=== PATIENT | male | born 1970 | race Two or more races ===

== ENCOUNTER 2021-06-27 10:25 | Outpatient (REF) | payer OTHER, SELFPAY ==
[2021-06-27 10:52] LABS: MANUAL DIFF FLAG NO
[2021-06-27 10:57] LABS: Basophils Percent Auto 0.9 % (0-2); Eosinophils Absolute Auto 0.1 X10*3/uL (0.0-0.4); Eosinophils Percent Auto 1.6 % (0-4); Hematocrit 47.4 % (42-52); Hemoglobin 15.8 g/dl (14.0-18.0); Imm Gran Abs Auto 0.01 X10*3/uL (0.00-0.03); Imm Gran Pct Auto 0.2 % (0.0-0.4); Lymphocytes Percent Auto 45.3 % (20-40); Mean Corpuscular HGB Conc 33.3 g/dl (31.0-36.0); Mean Corpuscular Hemoglobin 28.8 pg (27.0-33.0); Mean Corpuscular Volume 86.5 fL (80-98); Mean Platelet Volume 10.6 fL (9.4-12.4); Monocytes Absolute Auto 0.4 X10*3/uL (0.1-1.2); Monocytes Percent Auto 7.8 % (2-11); Neutrophils Percent Auto 44.2 % (45-73); Platelet Count 236 X10*3/uL (160-400); Red Blood Count 5.48 X10*6/uL (4.60-5.80); Red Cell Distribution Width 12.9 % (11.0-16.0); White Blood Count 4.5 X10*3/uL (4.8-10.8)
[2021-06-27 11:21] LABS: Alanine Aminotransferase 32 U/L (0-40); Albumin Level 4.8 g/dL (3.5-5.0); Alkaline Phosphatase 51 U/L (39-117); Anion Gap 12 (12-20); Aspartate Amino Transferase 25 U/L (5-37); Blood Urea Nitrogen 12 mg/dL (9-16); Carbon Dioxide 27 mmol/L (22-29); Chloride 103 mmol/L (96-108); Cholesterol 256 mg/dL; Estimated Glomerular Filt Rate > 60; Glucose Fasting 110 mg/dL (60-99); HDL Cholesterol 43 mg/dL; LDL Cholesterol Calculated 171 mg/dl; Potassium 4.4 mmol/L (3.3-5.1); Rheumatoid Factor < 15.0 IU/mL (<15.0); Sodium 138 mmol/L (135-145); Total Protein 7.6 g/dL (6.5-8.0); Triglycerides 214 mg/dL
[2021-06-27 11:42] LABS: Thyroid Stimulating Hormone 0.79 uIU/mL (0.32-4.0)
[2021-06-27 11:46] LABS: PSA,Total (Free>4and<10) 0.41 ng/mL (0.00-4.00)
[2021-06-28 14:07] LABS: Anti Nuclear Antibody Screen NEGATIVE (NEGATIVE)
[2021-06-28 19:22] LABS: Cyclic Citrullinated Peptide <16 UNITS
== END 2021-06-27 10:26 | disposition home or self-care (01) ==
LOC: HO.LAB 10:25
PROVIDERS: PCP Internal Medicine; Visit Provider Internal Medicine
DX: Z12.5 Encounter for screening for malignant neoplasm of prostate (principal); M25.50 Pain in unspecified joint; E78.5 Hyperlipidemia, unspecified; I10 Essential (primary) hypertension; D64.9 Anemia, unspecified; E66.9 Obesity, unspecified
CPT/HCPCS: 36415; 80053; 80061; 84153; 84443; 85025; 86038; 86039; 86200; 86431

== ENCOUNTER → 2021-08-14 15:37 | Outpatient (BNVA) | payer OTHER, SELFPAY | PROVIDERS: PCP Internal Medicine; Referring Provider Internal Medicine; Visit Provider Nurse Practitioner Family ==

== ENCOUNTER → 2021-10-31 10:34 | Outpatient (BNVA) | payer OTHER, SELFPAY | PROVIDERS: PCP Internal Medicine; Visit Provider Urology ==

== ENCOUNTER 2021-11-18 08:01 | Day surgery (SDC) | payer OTHER, SELFPAY ==
[2021-11-13 10:41] VITALS: BMI 32.5
--- NOTE | 2021-11-15 10:27 | HO.ANESPROP2 ---
Documented by User: Isi Duran NP 11/15/21 10:28 HPI - Anesthesia Eval Consult details Narrative: 51yo M for Colonoscopy PMFSH Active Problems Active Problems: All Active Problems (Updated 11/13/21 @ 10:44 by Gila Coronel RN) Elevated blood pressure reading (Acute) Low libido (Acute) Polyuria (Acute) Polyarthralgia (Acute) Obesity (BMI 30.0-34.9) (Acute) Essential hypertension (Acute) Past Medical History Medical History COVID-19 vaccine series completed Essential hypertension History of COVID-19 Obesity (BMI 30.0-34.9) Polyarthralgia Polyuria Snoring Family History Family History Mother No problems noted. Father Parkinson disease Alzheimer disease Diabetes Surgical History Surgical History No pertinent past surgical history Social History Social History Housing: House Alcohol intake: current Alcohol intake frequency: a few times a month Alcohol type: beer and hard liquor Patient Tobacco Use Status: Never used Tobacco e-Cigarette/Vaping Use: Never Used Second Hand Smoke Exposure: No Use of substances other than those prescribed or required for medical reasons: No Have you been hit, kicked, punched, or otherwise hurt by someone within the past year? If so, by whom?: No Are you DNR?: No Advance Directives: No Advance Directives Information Provided: Yes (brochure mailed) Advance Directives on File: No Recently lost weight without trying: No Eating poorly because of decreased appetite: No Nutrition Risks: No Nutritional Risk Poor oral hygiene: No (has some broken teeth, nothing loose) service: No Current occupational status: employed Current occupational exposures/hazards: No Cognitive needs: No Hearing needs: No Vision needs: No Meds Allergies Allergy/AdvReac Type Severity Reaction Status Date / Time Penicillins Allergy Intermediate Hives Verified 11/13/21 09:43 Home Medications Medication Instructions Recorded Confirmed Last Taken Type aspirin 81 mg tablet,delayed 81 mg PO Q2D 08/14/21 11/13/21 Unknown History release Exam Exam Date and Time: November 15, 2021 1027 Height,Weight and Vital Signs: Height 5 ft 9 in Weight 99.79 kg Pertinent Lab Results Pertinent Lab Results: Laboratory Tests 06/27/21 06/27/21 10:40 10:40 WBC 4.5 L Hgb 15.8 Hct 47.4 Plt Count 236 Sodium 138 Potassium 4.4 Chloride 103 Carbon Dioxide 27 BUN 12 Creatinine 1.04 Assessment and Plan Assessment Anesthesia Assessment: Chart Reviewed Documented by User: Chanda Ortiz MD 11/18/21 09:25 [facility] Past Medical History Medical History COVID-19 vaccine series completed Essential hypertension History of COVID-19 Obesity (BMI 30.0-34.9) Polyarthralgia Polyuria Snoring Family History Family History Mother No problems noted. Father Parkinson disease Alzheimer disease Diabetes Family history of problems with anesthesia: No Surgical History Surgical History No pertinent past surgical history History of Problems with Anesthesia: No Social History Social History Housing: House Alcohol intake: current Alcohol intake frequency: a few times a month Alcohol type: beer and hard liquor Patient Tobacco Use Status: Never used Tobacco e-Cigarette/Vaping Use: Never Used Second Hand Smoke Exposure: No Use of substances other than those prescribed or required for medical reasons: No Have you been hit, kicked, punched, or otherwise hurt by someone within the past year? If so, by whom?: No Are you DNR?: No Advance Directives: No Advance Directives Information Provided: Yes (brochure mailed) Advance Directives on File: No Recently lost weight without trying: No Eating poorly because of decreased appetite: No Nutrition Risks: No Nutritional Risk Poor oral hygiene: No (has some broken teeth, nothing loose) service: No Current occupational status: employed Current occupational exposures/hazards: No Cognitive needs: No Hearing needs: No Vision needs: No Meds Allergies Allergy/AdvReac Type Severity Reaction Status Date / Time Penicillins Allergy Intermediate Hives Verified 11/13/21 09:43 Home Medications Medication Instructions Recorded Confirmed Last Taken Type aspirin 81 mg tablet,delayed 81 mg PO Q2D 08/14/21 11/13/21 Unknown History release Exam Height,Weight and Vital Signs: Height 5 ft 9 in Weight 99.79 kg Vital Signs Temp Pulse Resp BP Pulse Ox 11/18/21 08:43 97.0 F 82 16 162/105 H 98 Airway Mallampati Class: II TM Dist: >3cm Neck ROM: Full Loose/Missing/Broken Teeth: Yes (Missing molar, broken bottom left back ) Heart: RRR Lungs: CTAB Assessment and Plan Assessment Anesthesia Assessment: Anesthesia Plan Discussed Final Anesthetic Review Family History of Problems with Anesthesia: No History of Problems with Anesthesia: No NPO: Yes ASA Class: III Final Preanesthetic Review: No Changes in Pt Med Stat, Meds/Allgs Chart Reviewed, Consent Obtained/Reviewed and Anes Risks/Benef Reviewed Patient Risk: Intermediate Procedure Risk: Low Assessment/Block/Sedation in SS: Assess/Block/Sedation- Anesthetic Plan Anesthetic Plan: MAC: Disposition: Standard PACU
[2021-11-18 08:43] VITALS: BP 162/105; PULSE 82; RESP 16; TEMP 36.1; O2SAT 98
--- NOTE | 2021-11-18 08:47 | MHC.SHP ---
Pre-Procedural Eval Section A Date of Service: 11/18/21 Section B Chief Complaint: screening Relevant Family History (Specify if Yes): No Relevant Social History: None Present Medications: see Short Stay Collaborative assessment Medical History: Significant History (COVID-19 vaccine series completed Essential hypertension History of COVID-19 Obesity (BMI 30.0-34.9) Polyarthralgia Polyuria Snoring) History of Previous Operations: No relevant previous surgery Allergies: Allergies Allergy/AdvReac Type Severity Reaction Status Date / Time Penicillins Allergy Intermediate Hives Verified 11/13/21 09:43 Review of Systems Sugical H&P ROS: Negative: Constitution, Cardiovascular, Respiratory, Neurological, Psychiatric, Hem-Onc, Allergic/Immunologic, Gastrointestinal, Genitourinary, Musculoskeletal, Integumentary, Endocrine and Eyes/Ears/Nose/Throat Exam Surgical H&P Exam: Normal: HEENT, Normal: Heart, Normal: Lungs, Normal: Extremities, Normal: Abdomen, Normal: Skin and Normal: Neurological Plan Diagnosis/Plan: Unchanged I have reviewed the history and physical and performed a pertinent physical examination on my patient. No changes have occurred unless specified.
--- NOTE | 2021-11-18 09:44 | P.BOP_ITS ---
Brief Operative Note Date of Service: 11/18/21 Pre-op diagnosis: colon screening Post-op diagnosis: same Procedure: see op note Surgeon: Hilario Munson MD Anesthesia: MAC Was an Keg Varnisher used for this Procedure?: No Estimated blood loss (mL): 0 Condition: stable Disposition: PACU
--- NOTE | 2021-11-18 09:44 | W.PM.OPN ---
Operative Note Operative Note Date of Service: 11/18/21 Narrative: Operative Information Procedure Description: Colonoscopy COLONOSCOPY Instrument: Olympus variable stiffness pediatric scope 190L Colonoscopy Monitoring: Vital signs and clinical assessment, continuous EKG monitoring, Pulse oximetry, Carbon Dioxide monitoring and blood pressure monitoring were done throughout the procedure. Colon withdrawal time was 18 minutes. Procedure: The patient was placed in the left lateral decubitis position and pre-procedure medications were administered. After a digital rectal examination of the ano-rectum, the video colonoscope was inserted into the rectum and advanced through the colon to the cecum/TI. The colonoscope was slowly withdrawn in a retrograde panoramic fashion and the colon mucosa was carefully examined including a retroflexed view of the rectum. Findings and interventions are described below. Procedure Difficulty: moderate, pressure applied to reach cecum Findings: Terminal Ileum-not intubated Cecum:normal Ascending Colon: 8-9 mm sessile polyp removed with cold snare Transverse Colon -normal Descending Colon:normal Sigmoid Colon: 10-12 mm sessile polyp removed with cold snare Rectum: Retroflexion with moderate sized internal hemorrhoids, grade II Anorectum - normal Colon preparation: [place] Bowel Preparation Scale Right colon; 2 Transverse colon: 2 Left colon; 2 (0 = Unprepared colon segment with mucosa not seen due to solid stool that cannot be cleared. 1 = Portion of mucosa of the colon segment seen, but other areas of the colon segment not well seen due to staining, residual stool and/or opaque liquid. 2 = Minor amount of residual staining, small fragments of stool and/or opaque liquid, but mucosa of colon segment seen well. 3 = Entire mucosa of colon segment seen well with no residual staining, small fragments of stool or opaque liquid) Impression and Post Procedure Diagnosis: polyps (both were Kudo type IV suggestive of adenomas) internal hemorrhoids Plan: High fiber diet leaflet Avoid straining at stool, epsom salts and sitz bath, anusol supps or cream Repeat Colonoscopy in 5 years due to polyps or earlier if clinically indicated Above findings were reviewed with the patient and relevant handouts were provided if indicated.
[2021-11-18 09:49] VITALS: BP 108/67; PULSE 83; RESP 18; TEMP 36.1; O2SAT 99
[2021-11-18 10:04] VITALS: BP 147/73; PULSE 87; RESP 18; TEMP 36.1; O2SAT 98
== END 2021-11-18 10:40 ==
LOC: HO.SSS 08:01
PROVIDERS: PCP Internal Medicine; Visit Provider Internal Medicine Gastroenterology
PROC: 0DJD8ZZ Inspection of Lower Intestinal Tract, Via Natural or Artificial Opening Endoscopic (ICD-10-PCS; CPT 45378; principal; 2021-11-18 09:10)
DX: Z12.11 Encounter for screening for malignant neoplasm of colon (principal); D12.2 Benign neoplasm of ascending colon; D12.5 Benign neoplasm of sigmoid colon; K64.1 Second degree hemorrhoids; I10 Essential (primary) hypertension; M25.50 Pain in unspecified joint; R35.89 Other polyuria; R06.83 Snoring; E66.9 Obesity, unspecified; Z68.32 Body mass index [BMI] 32.0-32.9, adult; Z86.16 Personal history of COVID-19; Z79.82 Long term (current) use of aspirin; Z88.0 Allergy status to penicillin
CPT/HCPCS: 45385; 88305

== ENCOUNTER → 2021-12-02 08:30 | Outpatient (BNVA) | payer OTHER, SELFPAY | PROVIDERS: PCP Internal Medicine; Referring Provider Internal Medicine; Visit Provider Nurse Practitioner Family ==

== ENCOUNTER 2023-07-22 13:43 | Outpatient (AMB) | payer OTHER, SELFPAY ==
[2023-07-22 13:46] VITALS: BP 150/92; BMI 34.1
--- NOTE | 2023-07-22 13:46 | A.OFFPC_ITS ---
Vital Signs 07/22/23 13:46 07/22/23 15:13 Height 5 ft 9 in Weight 231 lb BMI 34.1 BP 150/92 H 140/90 H Blood Pressure Location Lt brachial Lt brachial Position Sitting Sitting Intake Visit Reasons: annual exam Intake Note: Patient here for an annual physical exam Compliance Manager Required: No Accompanied by: Self / Same As Patient Allergies Penicillins Allergy (Intermediate, Verified 07/22/23 13:48) Hives Medication List - Last Reconciled 07/22/23 by Tegan Montes MD amlodipine 10 mg PO DAILY 90 days aspirin 81 mg PO Q2D chlorthalidone 25 mg PO DAILY 90 days valsartan 320 mg PO DAILY Tobacco use date assessed: 07/22/23 Dental Screening Dental Screen Date: 07/22/23 Did you have a dental visit in the last 12 months?: Yes Did you have a dental problem in the last 6 months where you did not have access to dental care?: No Was dental information given to patient?: Patient has dentist HPI HPI Comments History of Present Illness Details This is a 52-year-old male that comes for his physical exam. Last colonoscopy was a year ago and was normal. No chest pain or shortness of breath. Some loss of libido and would like to see Urology. [facility] Medical History Mixed hyperlipidemia Leucopenia Tubular adenoma COVID-19 vaccine series completed History of COVID-19 Snoring Polyuria Polyarthralgia Obesity (BMI 30.0-34.9) Essential hypertension Surgical History No pertinent past surgical history Family History (Updated 07/22/23 @ 14:04 by Tegan Montes MD) Mother No problems noted. Father Parkinson disease Alzheimer disease Diabetes Social History Housing: House Alcohol intake: current Alcohol intake frequency: a few times a month Alcohol type: beer and hard liquor Patient Tobacco Use Status: Former Tobacco user Tobacco use type: Cigarette e-Cigarette/Vaping Use: Never Used Second Hand Smoke Exposure: No service: No Current occupational status: employed Current occupational exposures/hazards: No Cognitive needs: No Hearing needs: No Vision needs: No Questionnaire PHQ-9 Over the last 2 weeks, how often have you been bothered by any of the following problems? 1. Little interest or pleasure in doing things: not at all 2. Feeling down, depressed, or hopeless: several days 3. Trouble falling or staying asleep, or sleeping too much: not at all 4. Feeling tired or having little energy: not at all 5. Poor appetite or overeating: not at all 6. Feeling bad about yourself - or that you are a failure or have let yourself or your family down: not at all 7. Trouble concentrating on things, such as reading the newspaper or watching television: not at all 8. Moving or speaking so slowly that other people could have noticed. Or the opposite - being so fidgety or restless that you have been moving around a lot more than usual: not at all 9. Thoughts that you would be better off or of hurting yourself in some way: not at all Total score: 1 Depression Screening Interpretation: Negative 55743 - PHQ-9 Billing: Yes Source: Developed by Drs. Fritz Lai, Nona Yang, Dick Wheatley and colleagues, with an educational rafael from [employer]. Thrive Questionnaire Date Thrive assessed: 07/22/23 I am a: Patient What is your living situation today?: I have a steady place to live Within the past 12 months, did the food you bought not last and you didn't have the money to get more?: Never true Within the past 12 months, did you worry whether your food would run out before you got money to buy more?: Never true Do you have trouble paying for medicines?: No Do you have trouble getting transportation to medical appointments?: No Do you have trouble paying your heating and electricity bill?: No Do you have trouble taking care of your child, family member or friend?: No Do you have trouble with day-to-day activities such as bathing, preparing meals, shopping, managing finances, etc.?: No Are you currently unemployed and looking for a job?: No Are you interested in more education?: No Please select the resources that you would like help with: None Currently or been in a relationship where the following occur: no concerns reported AUDIT C Alcohol Use Questionnaire (AUDIT-C) 1. How often do you have a drink containing alcohol?: 2-4 times a month 2. How many drinks containing alcohol do you have on a typical day when you are drinking?: 1 or 2 3. How often do you have six or more drinks on one occasion?: Never Total Score: 2 Score Reviewed/Action Taken: No MELBA-7 AMB Questionnaire MELBA-7 Date MELBA - 7 assessed: 07/22/23 Feeling nervous, anxious, or on edge: 0 = Not at all Not being able to stop or control worryin = Not at all Worrying too much about different things: 0 = Not at all Trouble relaxin = Not at all Being so restless that it is hard to sit still: 0 = Not at all Becoming easily annoyed or irritable: 0 = Not at all Feeling afraid as if something awful might happen: 0 = Not at all Total MELBA-7 score (0-4 normal; 5-9 mild; 10-14 moderate; 15-21 severe): 0 Source: Developed by Drs. Fritz Lai, Nona Yang, Dick Wheatley and colleagues, with an educational rafael from [employer]. MELBA-7 Assessment Billing MELBA-7 Assessment Tool: MELBA-7 Assessment 57398 Review of Systems Const All systems reviewed & are unremarkable except as noted in HPI and below Eyes Reports no additional complaints, Denies change in vision and Denies other visual disturbances Card Denies chest pain at rest, Denies chest pain with activity, Denies edema, Denies irregular heart rhythm, Denies claudication, Denies dyspnea, Denies dyspnea on exertion, Denies orthopnea, Denies paroxysmal nocturnal dyspnea and Denies slow heart rate Resp Denies cough, Denies dyspnea and Denies dyspnea on exertion GI Denies abdominal pain, Denies change in bowel habits, Denies excessive flatus, Denies nausea and Denies vomiting Denies urinary hesitancy, Denies urinary incontinence and Denies urinary urgency Musc Denies abnormal gait, Denies atrophy, Denies deformity and Denies limited range of motion Skin/Breast Denies bleeding lesions, Denies changing lesions and Denies rash Neuro Denies abnormal gait and Denies lack of coordination Physical exam (Primary Care) Vital Signs: Last Vital Signs BP 150/92 H 07/22/23 13:46 BMI result Body Mass Index 34.1 Tobacco/Smoking Status: Tobacco use Status Tobacco use date assessed 07/22/23 07/22/23 13:54 Patient Tobacco Use Status Former Tobacco user 07/22/23 13:54 Tobacco use type Cigarette 07/22/23 13:54 e-Cigarette/Vaping Use Never Used 07/22/23 13:54 PHQ-9: PHQ-9 Score PHQ-9: Total score 1 07/22/23 14:06 Depression Screening Interpretation: Negative Thrive Assessment: Date of Thrive Assessment Date Thrive assessed 07/22/23 07/22/23 13:54 Currently or been in a relationship where the following occur: no concerns reported Const Orientation/consciousness: patient oriented x3 HENMT Head: Yes normal to inspection, Yes normocephalic and Yes atraumatic Ears: external ears normal Eyes General: appearance normal, both eyes and all related structures Eyelids: Yes eyelids normal Conjunctivae: conjunctivae normal Neck Neck: Yes normal visual inspection and Yes supple Resp Effort & Inspection: normal respiratory effort Auscultation: clear to auscultation bilaterally Cardio Jugular venous distension: no JVD Rate: regular rate Rhythm: regular rhythm Heart sounds: S1 normal heart sound present and S2 normal heart sound present GI Inspection: Yes normal to inspection Palpation (GI): Soft to palpation and nontender Auscultation: normal bowel sounds Skin General skin exam: no rashes or lesions noted Neuro General: patient oriented x3 and no focal motor deficits Extrem General: Yes full ROM Psych Appearance: grossly normal Assessment and Plan Assessment & Plan (1) Physical exam: Code(s): Z00.00 - Encounter for general adult medical examination without abnormal findings Plan: Repeat in a year Orders: Orders Lipid Panel Today E78.5 - Hyperlipidemia, unspecified, Z00.00 - Encounter for general adult medical examination without abnormal findings PSA,Total (Free>4and<10) Today Z12.5 - Encounter for screening for malignant neoplasm of prostate Comprehensive [place]. Panel Fast Today Z00.00 - Encounter for general adult medical examination without abnormal findings Referrals Urology Referral R68.82 - Decreased libido Medications: New acetaminophen ER ([facility]ap Arthritis Pain) 650 mg PO Q12H 30 days PRN 60 tabs 0RF pain Coding Level of Care Code Est Pt Prev Care 40-64y(06688) Diagnoses Physical exam Z00.00 Additional Codes MELBA-7 Assessment Billing - MELBA-7 Assessment Tool: MELBA-7 Assessment 66643 ([id number]) Time Spent (min) 31
[2023-07-22 15:13] VITALS: BP 140/90
== END 2023-07-22 14:11 | disposition home or self-care (01) ==
PROVIDERS: PCP Internal Medicine; Visit Provider Internal Medicine
DX: Z00.00 Encounter for general adult medical examination without abnormal findings (principal)
CPT/HCPCS: 99396

== ENCOUNTER 2023-10-07 11:34 | Outpatient (AMB) | payer OTHER, SELFPAY ==
--- NOTE | 2023-10-07 11:33 | A.OFFVIS_ITS ---
Intake Intake Visit Reasons: Decreased libido Intake Note: New Patient presents for initial visit for decreased libido Urology Medications: none Blood Thinner: aspirin Senior Sales Director Required: No Accompanied by: Self / Same As Patient Allergies Penicillins Allergy (Intermediate, Verified 10/07/23 12:27) Hives Medication List - Last Reconciled 10/07/23 by SHERRI Fraire-AZUL acetaminophen ER (Mapap Arthritis Pain) 650 mg PO Q12H PRN 30 days amlodipine 10 mg PO DAILY 90 days aspirin 81 mg PO Q2D chlorthalidone 25 mg PO DAILY 90 days tadalafil (Cialis) 5 mg PO DAILY 90 days valsartan 320 mg PO DAILY HPI HPI Comments History of Present Illness Details Eber is a 52-year-old Thai-speaking male patient of Dr. Jarrett. He has a past medical history of hyperlipidemia, obesity, and hypertension. He presents to the office today as a new patient for low libido and erectile dysfunction. In discussion with the patient today he reports symptoms to have been present for months however feels they are worsening. He discusses feeling symptoms of low libido and erectile dysfunction are variable. He reports at times he is able to obtain and maintain erections. Discussed at length lifestyle modifications to assist with low libido and erectile dysfunction. He discusses at length his high level of stress with the recent loss of his father approximately 3 months ago and having 2 jobs. When asked he does report nocturia 2-4 times per night. He otherwise denies urinary urgency, urinary frequency, incontinence,hematuria, dysuria, foul smelling urine, changes to urinary stream, flank pain, fever, and or chills. Discussed obtaining labs as well as retroperitoneal ultrasound for further assessment evaluation. Discussed at length potential causes for lower urinary tract symptoms as well as low libido and erectile dysfunction. In office urinalysis results reviewed with the patient today. Discussed near future possible workup for sleep apnea. He also discusses undergoing infertility issues over 20 years ago. He otherwise offers no issues or concerns at this time. [facility] Medical History Mixed hyperlipidemia Leucopenia Tubular adenoma COVID-19 vaccine series completed History of COVID-19 Snoring Polyuria Polyarthralgia Obesity (BMI 30.0-34.9) Essential hypertension Surgical History No pertinent past surgical history Family History Mother No problems noted. Father Parkinson disease Alzheimer disease Diabetes Social History Housing: House Alcohol intake: current Alcohol intake frequency: a few times a month Alcohol type: beer and hard liquor Patient Tobacco Use Status: Former Tobacco user Tobacco use type: Cigarette e-Cigarette/Vaping Use: Never Used Second Hand Smoke Exposure: No service: No Current occupational status: employed Current occupational exposures/hazards: No Cognitive needs: No Hearing needs: No Vision needs: No Review of Systems Const All systems reviewed & are unremarkable except as noted in HPI and below Eyes Reports no additional complaints ENT Reports no additional complaints Card Reports as per HPI Resp Reports no additional complaints GI Reports no additional complaints Reports as per HPI Musc Reports no additional complaints Neuro Reports no additional complaints Psych Reports as per HPI Endo Reports no additional complaints Umesh/Lymph Reports no additional complaints Aller/Immun Reports no additional complaints Physical Exam Const General: cooperative, healthy appearing, comfortable, no acute distress, well developed, alert and awake Nutritional Appearance: overweight Orientation/consciousness: patient oriented x3 Limitations: no limitations HEENT Head: Yes normal to inspection, Yes normocephalic and Yes atraumatic Ears: hearing grossly normal bilaterally Eyes General: appearance normal, both eyes and all related structures Neck Neck: Yes normal visual inspection and Yes trachea midline Chest Chest palpation & inspection: normal inspection of the chest Resp Effort & Inspection: normal respiratory effort and able to speak in complete sentences Cardio Rate: regular rate GI Inspection: Yes normal to inspection General: Yes no CVA tenderness Back/Spine/Pelvis Back: no CVA tenderness Skin General skin exam: no rashes or lesions noted Neuro General: patient oriented x3 Extrem General: Yes normal to inspection Psych Appearance: grossly normal and well kempt Mental Status: mental status grossly normal Speech and movement: Normal speech and movement present and Clear speech present Affect: normal affect Attitude: cooperative Thought process: Normal thought process present Thought content: Normal thought content present Insight: Fair insight present (Psych) Judgement: Fair judgement present (Psych) Results AMB Urinalysis, Automated UA Leukoctes 0 Rc/uL Last Edit by Jam Taylor on 10/07/23 11:53 UA Nitrite Negative Last Edit by Jam Taylor on 10/07/23 11:53 UA Urobilinogen 0.2 mg/dL Last Edit by Jam Taylor on 10/07/23 11:53 UA Protein 15 mg/dL Last Edit by Jam Taylor on 10/07/23 11:53 UA pH 6.0 Last Edit by Jam Taylor on 10/07/23 11:53 UA Blood 0 Ronald/uL Last Edit by Jam Taylor on 10/07/23 11:53 UA Specific [place] 1.025 Last Edit by Jam Taylor on 10/07/23 11:53 UA Ketone Negative Last Edit by Jam Taylor on 10/07/23 11:53 UA Bilirubin 0 mg/dL Last Edit by Jam Taylor on 10/07/23 11:53 UA Glucose 0 mg/dL Last Edit by Jam Taylor on 10/07/23 11:53 Results Reviewed Results Reviewed: Laboratory Last Values Urine pH (Auto) 6.0 10/07/23 11:36 Specific [place] (Auto) 1.025 10/07/23 11:36 Urine Protein (Auto) 15 mg/dL 10/07/23 11:36 Glucose (UA)(Auto) 0 mg/dL 10/07/23 11:36 Urine Ketones (Auto) Negative 10/07/23 11:36 Urine Blood (Auto) 0 Ronald/uL 10/07/23 11:36 Urine Nitrite (Auto) Negative 10/07/23 11:36 Urine Bilirubin (Auto) 0 mg/dL 10/07/23 11:36 Urine Urobilinogen (Auto) 0.2 mg/dL 10/07/23 11:36 Leukocyte Esterase (Auto) 0 Rc/uL 10/07/23 11:36 Assessment & Plan Assessment & Plan (1) Low libido: Code(s): R68.82 - Decreased libido (2) Erectile dysfunction: Code(s): N52.9 - Male erectile dysfunction, unspecified (3) Nocturia: Code(s): R35.1 - Nocturia Plan In office urinalysis results reviewed with the patient today; as noted above. Discussed at length lifestyle modifications to assist with ED, low libido, and nocturia Will obtain testosterone free and total, PSA, FSH, estradiol, LH, and SHBG for further assessment evaluation. Will obtain retroperitoneal ultrasound for further assessment evaluation. Start 5 mg of Cialis daily as discussed and prescribed. Discussed possible near future sleep apnea testing for further assessment evaluation Discussed potential causes for ED, low libido, and nocturia patient is experiencing Follow-up in 1-2 months with labs and imaging to be completed prior; or sooner with any issues, concerns, and or questions. Orders: Orders Sex Hormone Binding Globulin Today N52.9 - Male erectile dysfunction, unspecified, R68.82 - Decreased libido US retroperitoneal comp Today R35.1 - Nocturia Lutenizing Hormone Today N52.9 - Male erectile dysfunction, unspecified Estradiol Ultra Sensitive Today N52.9 - Male erectile dysfunction, unspecified Follicle Stimulating Hormone Today N52.9 - Male erectile dysfunction, unspecified AMB Urinalysis Automated Today Z13.9 - Encounter for screening, unspecified Testosterone, Free/Total Today N52.9 - Male erectile dysfunction, unspecified, R 68.82 - Decreased libido Prostate Specific Antigen Today R35.1 - Nocturia Medications: New tadalafil (Cialis) [id number] [facility] [id number] Member [id number] 5 mg PO DAILY 90 days 90 tabs 0RF N52.9 - Male erectile dysfunction, unspecified Patient Instructions: The patient had an opportunity to ask questions regarding the treatment plan. All questions were answered. Physical exam, labs, and imaging were discussed and reviewed in detail. As well as risks, benefits, and discussion of treatment choices. No major barriers to understanding were identified. The patient expressed understanding and agreement with the above treatment plan. The patient was made aware they should contact our office by phone for worsening of their current condition, the appearance of new symptoms, or with any questions or concerns. Compliance is encouraged with any medications and follow up testing that is ordered. It is a privilege to be allowed the opportunity to participate in? your urological care.? Again, if you have any questions or concerns If you have any questions or concerns please do not hesitate to contact me. The office is [phone]. This note is constructed using voice recognition software. While every effort has been made to ensure accuracy stiff straw hat washer errors may have been included. Yours sincerely, LALO Fraire Coding Level of Care Code New Pt Level 4 (46143) Diagnoses Low libido R68.82 Erectile dysfunction N52.9 Nocturia R35.1
== END 2023-10-07 12:31 | disposition home or self-care (01) ==
PROVIDERS: PCP Internal Medicine; Visit Provider Nurse Practitioner Family
DX: R68.82 Decreased libido (principal); N52.9 Male erectile dysfunction, unspecified; R35.1 Nocturia; Z13.9 Encounter for screening, unspecified
CPT/HCPCS: 99204; 99214

== ENCOUNTER → 2023-10-07 11:34 | Outpatient (BNVA) | payer OTHER, SELFPAY | PROVIDERS: PCP Internal Medicine; Visit Provider Nurse Practitioner Family | DX: R68.82 Decreased libido (principal); N52.9 Male erectile dysfunction, unspecified; R35.1 Nocturia | CPT/HCPCS: 81003 ==

== ENCOUNTER 2023-11-04 12:31 | Outpatient (REF) | payer OTHER, SELFPAY ==
[2023-11-04 15:35] LABS: Prostate Specific Antigen 0.31 ng/mL (<0.05-4.0)
[2023-11-06 01:28] LABS: Sex Hormone Binding Globulin 22 nmol/L (10-50)
[2023-11-06 04:28] LABS: Follicle Stimulating Hormone 15.3 mIU/mL (1.4-12.8); Lutenizing Hormone 8.1 mIU/mL (1.5-9.3)
[2023-11-10 23:19] LABS: Estradiol Ultra Sensitive 37 pg/mL (< OR = 29)
[2023-11-11 14:24] LABS: Testosterone, Free 73.5 pg/mL (35.0-155.0); Testosterone, Total 393 ng/dL (250-1100)
== END 2023-11-04 12:32 | disposition home or self-care (01) ==
LOC: HO.LAB 12:31
PROVIDERS: Absent Provider Internal Medicine; PCP Internal Medicine; Visit Provider Nurse Practitioner Family
DX: Z12.5 Encounter for screening for malignant neoplasm of prostate (principal); N52.9 Male erectile dysfunction, unspecified; R35.1 Nocturia; R68.82 Decreased libido
CPT/HCPCS: 36415; 82670; 83001; 83002; 84153; 84270; 84402; 84403

== ENCOUNTER 2023-11-25 14:19 | Outpatient (REF) | payer OTHER, SELFPAY ==
--- NOTE | ~2023-11-25 | US_ITS ---
EXAMINATION: US RETROPERITONEAL COMPLETE (RENAL) CLINICAL INFORMATION: Nocturia. COMPARISON: None available. TECHNIQUE: Real-time imaging of the kidneys and bladder. FINDINGS: RIGHT KIDNEY: 11.2 x 7.3 x 6.2 cm (SAG x AP x TRV). The kidney is normal in size, contour, and echogenicity. Renal cortical thickness is normal. No renal calculi or focal parenchymal lesions. Mild right hydronephrosis. LEFT KIDNEY: 12.1 x 7.2 x 5.4 cm (SAG x AP x TRV). The kidney is normal in size, contour, and echogenicity. Renal cortical thickness is normal. No renal calculi or focal parenchymal lesions. Pelviectasis without missy hydronephrosis. BLADDER: Well distended and normal. Bilateral ureteral jets are demonstrated. Prevoid bladder volume is 135 mL. Postvoid bladder volume is 12.6 mL. ADDITIONAL FINDINGS: Prostate enlarged with a volume of 35 mL. US/US retroperitoneal comp IMPRESSION: 1. Mild right hydronephrosis. 2. Left renal pelviectasis without missy hydronephrosis. 3. Prostate is mildly enlarged with a volume of 35 mL.
== END 2023-11-25 14:20 | disposition home or self-care (01) ==
LOC: HO.US 14:19
PROVIDERS: PCP Internal Medicine; Visit Provider Nurse Practitioner Family
DX: R35.1 Nocturia (principal)
CPT/HCPCS: 76770

== ENCOUNTER 2023-12-01 08:48 | Outpatient (AMB) | payer OTHER, SELFPAY ==
--- NOTE | 2023-12-01 08:49 | A.OFFVIS_ITS ---
Intake Intake Visit Reasons: 1m/US/labs Intake Note: Patient presents for follow up Ultrasound and Labs Imagin11/25/23 PSA: 0.31 Total Testosterone: 393 Free Testosterone: 73.5 Urology Medications: Tadalafil Blood Thinner: aspirin Venue Coordinator Required: Yes Venue Coordinator Name: SANDRINE KIRKLAND Accompanied by: Self / Same As Patient Allergies Penicillins Allergy (Intermediate, Verified 12/01/23 09:09) Hives Medication List - Last Reconciled 12/01/23 by SHERRI Fraire-AZUL acetaminophen ER (Mapap Arthritis Pain) 650 mg PO Q12H PRN 30 days amlodipine 10 mg PO DAILY 90 days aspirin 81 mg PO Q2D chlorthalidone 25 mg PO DAILY 90 days tadalafil (Cialis) 5 mg PO DAILY 90 days valsartan 320 mg PO DAILY HPI HPI Comments History of Present Illness Details Eber is a 53-year-old Venezuelan-speaking male patient of Dr. Jarrett. He has a past medical history of hyperlipidemia, obesity, and hypertension. He presents to the office today for follow-up. Of note, patient was seen approximately 2 months ago as a new patient for low libido and erectile dysfunction at which time labs were ordered for further assessment evaluation and the patient was started on low-dose Cialis. These results were reviewed with the patient today. 11/18 Estradiol--37 FSH--15.3 LH--8.1 Total testosterone --393 Free testosterone-- 73.5 SHBG--22 PSA--0.3 Discussed obtaining prolactin as well as redraw of labs for further assessment evaluation. Discussed abnormality and estradiol as well as FSH. Patient reports previous workup for infertility in the past in [place]. In discussion with the patient today he reports noting improvement in erectile dysfunction with Cialis 5 mg daily. During last office visit patient was also reporting nocturia therefore a retroperitoneal ultrasound was ordered for further assessment evaluation. These results were reviewed with the patient today. Mild right hydronephrosis, left renal pelviectasis without missy hydronephrosis. Prostate is mildly enlarged at approximately 35 mL. Discussed further workup with CT urogram and or nuclear renal scan versus surveillance monitoring discussed risks and benefits of these interventions. Discussed at length potential causes for lower urinary tract symptoms as well as low libido and erectile dysfunction. He otherwise denies urinary urgency, urinary frequency, incontinence, hematuria, dysuria, foul smelling urine, changes to urinary stream, flank pain, fever, and or chills. He is happy with his current voiding parameters. In office urinalysis results reviewed with the patient today. He otherwise offers no issues or concerns at this time. [facility] Medical History Mixed hyperlipidemia Leucopenia Tubular adenoma COVID-19 vaccine series completed History of COVID-19 Snoring Polyuria Polyarthralgia Obesity (BMI 30.0-34.9) Essential hypertension Surgical History No pertinent past surgical history Family History Mother No problems noted. Father Parkinson disease Alzheimer disease Diabetes Social History Housing: House Alcohol intake: current Alcohol intake frequency: a few times a month Alcohol type: beer and hard liquor Patient Tobacco Use Status: Former Tobacco user Tobacco use type: Cigarette e-Cigarette/Vaping Use: Never Used Second Hand Smoke Exposure: No service: No Current occupational status: employed Current occupational exposures/hazards: No Cognitive needs: No Hearing needs: No Vision needs: No Review of Systems Const All systems reviewed & are unremarkable except as noted in HPI and below Eyes Reports no additional complaints ENT Reports no additional complaints Card Reports as per HPI Resp Reports no additional complaints GI Reports no additional complaints Reports as per HPI Musc Reports no additional complaints Neuro Reports no additional complaints Psych Reports as per HPI Endo Reports no additional complaints Umesh/Lymph Reports no additional complaints Aller/Immun Reports no additional complaints Physical Exam Const General: cooperative, healthy appearing, comfortable, no acute distress, well developed, alert and awake Nutritional Appearance: overweight Orientation/consciousness: patient oriented x3 Limitations: no limitations HEENT Head: Yes normal to inspection, Yes normocephalic and Yes atraumatic Ears: hearing grossly normal bilaterally Eyes General: appearance normal, both eyes and all related structures Neck Neck: Yes normal visual inspection and Yes trachea midline Chest Chest palpation & inspection: normal inspection of the chest Resp Effort & Inspection: normal respiratory effort and able to speak in complete sentences Cardio Rate: regular rate GI Inspection: Yes normal to inspection General: Yes no CVA tenderness Back/Spine/Pelvis Back: no CVA tenderness Skin General skin exam: no rashes or lesions noted Neuro General: patient oriented x3 Extrem General: Yes normal to inspection Psych Appearance: grossly normal and well kempt Mental Status: mental status grossly normal Speech and movement: Normal speech and movement present and Clear speech present Affect: normal affect Attitude: cooperative Thought process: Normal thought process present Thought content: Normal thought content present Insight: Fair insight present (Psych) Judgement: Fair judgement present (Psych) Results AMB Urinalysis, Automated UA Leukoctes 0 Rc/uL Last Edit by [employer] on 12/01/23 09:07 UA Nitrite Negative Last Edit by [employer] on 12/01/23 09:07 UA Urobilinogen 0.2 mg/dL Last Edit by [employer] on 12/01/23 09:07 UA Protein 0 mg/dL Last Edit by [employer] on 12/01/23 09:07 UA pH 6.0 Last Edit by [employer] on 12/01/23 09:07 UA Blood 0 Ronald/uL Last Edit by [employer] on 12/01/23 09:07 UA Specific [place] 1.030 Last Edit by [employer] on 12/01/23 09:07 UA Ketone Negative Last Edit by [employer] on 12/01/23 09:07 UA Bilirubin 0 mg/dL Last Edit by [employer] on 12/01/23 09:07 UA Glucose 0 mg/dL Last Edit by [employer] on 12/01/23 09:07 AMB Urinalysis, Automated UA Leukoctes 0 Rc/uL Last Edit by [employer] on 12/01/23 09:09 UA Nitrite Negative Last Edit by [employer] on 12/01/23 09:09 UA Urobilinogen 0.2 mg/dL Last Edit by [employer] on 12/01/23 09:09 UA Protein 0 mg/dL Last Edit by [employer] on 12/01/23 09:09 UA pH 6.0 Last Edit by [employer] on 12/01/23 09:09 UA Blood 0 Ronald/uL Last Edit by [employer] on 12/01/23 09:09 UA Specific [place] 1.030 Last Edit by Jam Taylor on 12/01/23 09:09 UA Ketone Negative Last Edit by Jam Taylor on 12/01/23 09:09 UA Bilirubin 0 mg/dL Last Edit by Jam Taylor on 12/01/23 09:09 UA Glucose 0 mg/dL Last Edit by Jam Taylor on 12/01/23 09:09 Results Reviewed Results Reviewed: Laboratory Last Values Urine pH (Auto) 6.0 12/01/23 08:50 Urine pH (Auto) 6.0 12/01/23 08:50 Specific [place] (Auto) 1.030 12/01/23 08:50 Specific [place] (Auto) 1.030 12/01/23 08:50 Urine Protein (Auto) 0 mg/dL 12/01/23 08:50 Urine Protein (Auto) 0 mg/dL 12/01/23 08:50 Glucose (UA)(Auto) 0 mg/dL 12/01/23 08:50 Glucose (UA)(Auto) 0 mg/dL 12/01/23 08:50 Urine Ketones (Auto) Negative 12/01/23 08:50 Urine Ketones (Auto) Negative 12/01/23 08:50 Urine Blood (Auto) 0 Ronald/uL 12/01/23 08:50 Urine Blood (Auto) 0 Ronadl/uL 12/01/23 08:50 Urine Nitrite (Auto) Negative 12/01/23 08:50 Urine Nitrite (Auto) Negative 12/01/23 08:50 Urine Bilirubin (Auto) 0 mg/dL 12/01/23 08:50 Urine Bilirubin (Auto) 0 mg/dL 12/01/23 08:50 Urine Urobilinogen (Auto) 0.2 mg/dL 12/01/23 08:50 Urine Urobilinogen (Auto) 0.2 mg/dL 12/01/23 08:50 Leukocyte Esterase (Auto) 0 Rc/uL 12/01/23 08:50 Leukocyte Esterase (Auto) 0 Rc/uL 12/01/23 08:50 Date of Service: 11/25/23 EXAMINATION: US RETROPERITONEAL COMPLETE (RENAL) FINDINGS: RIGHT KIDNEY: 11.2 x 7.3 x 6.2 cm (SAG x AP x TRV). The kidney is normal in size, contour, and echogenicity. Renal cortical thickness is normal. No renal calculi or focal parenchymal lesions. Mild right hydronephrosis. LEFT KIDNEY: 12.1 x 7.2 x 5.4 cm (SAG x AP x TRV). The kidney is normal in size, contour, and echogenicity. Renal cortical thickness is normal. No renal calculi or focal parenchymal lesions. Pelviectasis without missy hydronephrosis. BLADDER: Well distended and normal. Bilateral ureteral jets are demonstrated. Prevoid bladder volume is 135 mL. Postvoid bladder volume is 12.6 mL. ADDITIONAL FINDINGS: Prostate enlarged with a volume of 35 mL. IMPRESSION: 1. Mild right hydronephrosis. 2. Left renal pelviectasis without missy hydronephrosis. 3. Prostate is mildly enlarged with a volume of 35 mL. Assessment & Plan Assessment & Plan (1) Erectile dysfunction: Code(s): N52.9 - Male erectile dysfunction, unspecified (2) Low libido: Code(s): R68.82 - Decreased libido Plan In office urinalysis results reviewed with the patient today; as noted above. Recent labs reviewed with the patient today; as noted above; this was discussed at length; abnormal estradiol and FSH Recent retroperitoneal ultrasound results reviewed with the patient today; as noted above; discussed potential causes for mild hydronephrosis noted on renal ultrasound; discussed further workup with labs as well as CT verses nuclear renal scan versus surveillance monitoring; will continue with surveillance monitoring at this time Discussed further sleep apnea referral and testing for further assessment evaluation; however patient declines as he does not find his nocturia bothersome at this time. Discussed redraw of hypogonadism labs for further assessment evaluation. Will continue with 5 mg of Cialis daily as patient reports significant improvement in erections. P.r.n. prescription provided as well. Discussed at length importance of managing diabetes for improvement in lower urinary tract symptoms, ED, and overall health and well-being. Discussed lifestyle modifications to assist with nocturia as well as ED. Follow-up in 3 months with labs to be completed prior; or sooner with any issues, concerns, and or questions. Orders: Orders Estradiol Ultra Sensitive Today E29.1 - Testicular hypofunction AMB Urinalysis Automated Today Z13.9 - Encounter for screening, unspecified AMB Urinalysis Automated Today Z13.9 - Encounter for screening, unspecified Follicle Stimulating Hormone Today N52.9 - Male erectile dysfunction, unspecified, R68.82 - Decreased libido Lutenizing Hormone Today N52.9 - Male erectile dysfunction, unspecified, R68.82 - Decreased libido Testosterone, Free/Total Today N52.9 - Male erectile dysfunction, unspecified, R68.82 - Decreased libido Medications: New tadalafil [id number] [facility] [id number] Member [id number] 20 mg PO .PRN 90 days 30 tabs 0RF sexual activity N52.01 - Erectile dysfunction due to arterial insufficiency, N52.9 - Male erectile dysfunction, unspecified Patient Instructions: The patient had an opportunity to ask questions regarding the treatment plan. All questions were answered. Physical exam, labs, and imaging were discussed and reviewed in detail. As well as risks, benefits, and discussion of treatment choices. No major barriers to understanding were identified. The patient expressed understanding and agreement with the above treatment plan. The patient was made aware they should contact our office by phone for worsening of their current condition, the appearance of new symptoms, or with any questions or concerns. Compliance is encouraged with any medications and follow up testing that is ordered. It is a privilege to be allowed the opportunity to participate in? your urological care.? Again, if you have any questions or concerns If you have any questions or concerns please do not hesitate to contact me. The office is [phone]. This note is constructed using voice recognition software. While every effort has been made to ensure accuracy md ophthalmologist errors may have been included. Yours sincerely, LALO Fraire Coding Level of Care Code Est Pt Level 4 (77387) Diagnoses Erectile dysfunction N52.9 Low libido R68.82 Time Spent (min) 40
== END 2023-12-01 09:32 | disposition home or self-care (01) ==
PROVIDERS: PCP Internal Medicine; Visit Provider Nurse Practitioner Family
DX: N52.9 Male erectile dysfunction, unspecified (principal); R68.82 Decreased libido
CPT/HCPCS: 99214

== ENCOUNTER 2023-12-01 08:48 | Outpatient (REF) | payer OTHER, SELFPAY ==
[2023-12-02 15:13] LABS: Follicle Stimulating Hormone 15.8 mIU/mL (1.4-12.8)
[2023-12-08 20:53] LABS: Estradiol Ultra Sensitive 33 pg/mL (< OR = 29)
[2023-12-10 11:43] LABS: Testosterone, Free 98.6 pg/mL (35.0-155.0); Testosterone, Total 448 ng/dL (250-1100)
== END 2023-12-01 08:49 | disposition home or self-care (01) ==
LOC: HO.LAB 08:48
PROVIDERS: PCP Internal Medicine; Visit Provider Nurse Practitioner Family
DX: E29.1 Testicular hypofunction (principal); N52.9 Male erectile dysfunction, unspecified; R68.82 Decreased libido
CPT/HCPCS: 36415; 81003; 82670; 83001; 83002; 84146; 84402; 84403

== ENCOUNTER 2024-03-01 09:14 | Outpatient (AMB) | payer OTHER, SELFPAY ==
--- NOTE | 2024-03-01 09:25 | MHC.OFFVIS ---
Intake Visit Reasons: 3m/labs(set) Intake Note: Patient presents for follow up erectile dysfunction and labs Urology Medications: Tadalafil Blood Thinner: aspirin City Manager Required: Yes City Manager Name: SANDRINE KIRKLAND Accompanied by: Self / Same As Patient Allergies Penicillins Allergy (Intermediate, Verified 03/01/24 20:34) Hives Medication List - Last Reconciled 03/01/24 by SHERRI Fraire- acetaminophen ER ([place] Arthritis Pain) 650 mg PO Q12H PRN 30 days amlodipine 10 mg PO DAILY 90 days aspirin 81 mg PO Q2D chlorthalidone 25 mg PO DAILY 90 days tadalafil 20 mg PO .PRN 90 days tadalafil (Cialis) 5 mg PO DAILY 90 days valsartan 320 mg PO DAILY HPI Comments Details: Eber is a 53-year-old Nepali-speaking male patient of Dr. Jarrett. He has a past medical history of hyperlipidemia, polyarthralgia, obesity, and hypertension. He presents to the office today for follow-up of his erectile dysfunction. In discussion with the patient today he reports since his office visit here approximately 3 months ago he has had a procedure on his right knee. He reports to be recovering well. He is undergoing therapy 2 times per week. Previous hypogonadism labs reviewed with the patient today as noted and trended below. Discussed at length potential causes for elevated estradiol levels. Discussed trial of anastrozole verses surveillance monitoring. Discussed affects of increased weight and elevated estradiol levels. He discusses upcoming trip to [facility] and will be on a 1 week cruise. He does report compliance with 5 mg of Cialis daily. He has found this somewhat helpful. He is requesting a refill on daily dosing and p.r.n. dosing. He otherwise denies any bothersome urinary issues or concerns. He denies urinary urgency, urinary frequency, incontinence, hematuria, dysuria, foul smelling urine, changes to urinary stream, flank pain, fever, and or chills. He is happy with his current voiding parameters. In office urinalysis results reviewed with the patient today. Previous workup has included a retroperitoneal ultrasound noting mild right hydronephrosis, left renal pelviectasis without missy hydronephrosis. Prostate is mildly enlarged at approximately 35 mL. He otherwise offers no other issues or concerns at this time. Estradiol 11/18 37, 12/19 33 FSH 11/18 15.3, 15.8 LH 11/18 8.1, 12/19 6.0 Total testosterone 11/18 393, 12/19 448 Free testosterone- 11/18 73.5, 12/19 98.6 SHBG 11/18 22 Prolactin 12/19 5.0 PSA 07/16 0.4, 11/18 0.3 PFSH Medical History Mixed hyperlipidemia Leucopenia Tubular adenoma COVID-19 vaccine series completed History of COVID-19 Snoring Polyuria Polyarthralgia Obesity (BMI 30.0-34.9) Essential hypertension Surgical History No pertinent past surgical history Family History Mother No problems noted. Father Parkinson disease Alzheimer disease Diabetes Social History Housing: House Alcohol intake: current Alcohol intake frequency: a few times a month Alcohol type: beer and hard liquor Patient Tobacco Use Status: Former Tobacco user Tobacco use type: Cigarette e-Cigarette/Vaping Use: Never Used Second Hand Smoke Exposure: No service: No Current occupational status: employed Current occupational exposures/hazards: No Cognitive needs: No Hearing needs: No Vision needs: No Review of Systems Const All systems reviewed & are unremarkable except as noted in HPI and below Eyes Reports no additional complaints ENT Reports no additional complaints Card Reports as per HPI Resp Reports no additional complaints GI Reports no additional complaints Reports as per HPI Musc Reports as per HPI Neuro Reports no additional complaints Psych Reports as per HPI Endo Reports no additional complaints Umesh/Lymph Reports no additional complaints Aller/Immun Reports no additional complaints Physical Exam Const General: cooperative, healthy appearing, comfortable, no acute distress, well developed, alert and awake Nutritional Appearance: overweight Orientation/consciousness: patient oriented x3 Limitations: no limitations HEENT Head: Yes normal to inspection, Yes normocephalic and Yes atraumatic Ears: hearing grossly normal bilaterally Eyes General: appearance normal, both eyes and all related structures Neck Neck: Yes normal visual inspection and Yes trachea midline Chest Chest palpation & inspection: normal inspection of the chest Resp Effort & Inspection: normal respiratory effort and able to speak in complete sentences Cardio Rate: regular rate GI Inspection: Yes normal to inspection General: Yes no CVA tenderness Back/Spine/Pelvis Back: no CVA tenderness Skin General skin exam: no rashes or lesions noted Neuro General: patient oriented x3 Extrem General: Yes normal to inspection Psych Appearance: grossly normal and well kempt Mental Status: mental status grossly normal Speech and movement: Normal speech and movement present and Clear speech present Affect: normal affect Attitude: cooperative Thought process: Normal thought process present Thought content: Normal thought content present Insight: Fair insight present (Psych) Judgement: Fair judgement present (Psych) Results AMB Urinalysis, Automated UA Leukoctes 0 Rc/uL Last Edit by [employer] on 03/01/24 09:38 UA Nitrite Negative Last Edit by [employer] on 03/01/24 09:38 UA Urobilinogen 0.2 mg/dL Last Edit by [employer] on 03/01/24 09:38 UA Protein 15 mg/dL Last Edit by [employer] on 03/01/24 09:38 UA pH 7.5 Last Edit by [employer] on 03/01/24 09:38 UA Blood 0 Ronald/uL Last Edit by [employer] on 03/01/24 09:38 UA Specific Hector 1.010 Last Edit by [employer] on 03/01/24 09:38 UA Ketone Negative Last Edit by [employer] on 03/01/24 09:38 UA Bilirubin 0 mg/dL Last Edit by [employer] on 03/01/24 09:38 UA Glucose 0 mg/dL Last Edit by [employer] on 03/01/24 09:38 Results Reviewed Results Reviewed: Laboratory Last Values Urine pH (Auto) 7.5 03/01/24 09:27 Specific Hector (Auto) 1.010 03/01/24 09:27 Urine Protein (Auto) 15 mg/dL 03/01/24 09:27 Glucose (UA)(Auto) 0 mg/dL 03/01/24 09:27 Urine Ketones (Auto) Negative 03/01/24 09:27 Urine Blood (Auto) 0 Ronald/uL 03/01/24 09:27 Urine Nitrite (Auto) Negative 03/01/24 09:27 Urine Bilirubin (Auto) 0 mg/dL 03/01/24 09:27 Urine Urobilinogen (Auto) 0.2 mg/dL 03/01/24 09:27 Leukocyte Esterase (Auto) 0 Rc/uL 03/01/24 09:27 Assessment & Plan Assessment & Plan (1) Erectile dysfunction: Code(s): N52.9 - Male erectile dysfunction, unspecified Category: Medical (2) Low libido: Code(s): R68.82 - Decreased libido Category: Medical Plan In office urinalysis results reviewed with the patient today; as noted above. Recent labs reviewed with the patient today. Discussed elevated estradiol; discussed further treatment options with trial of anastrozole 2 times per week versus surveillance monitoring. Discussed, educated, and stressed the importance of weight loss for overall health and well-being. Patient currently denies any bothersome urinary issues or concerns. He is happy with his current voiding parameters. Continue 5 mg of Cialis daily and p.r.n. Cialis as needed for sexual activity; refills provided. Will obtain testosterone, free testosterone, LH, SHBG, prolactin, estradiol, PSA, and FSH in 3 months. Follow-up in 3 months with labs to be completed prior; or sooner with any issues, concerns, and or questions. Orders: Orders AMB Urinalysis Automated Today Z13.9 - Encounter for screening, unspecified Testosterone, Free/Total 3 Months R68.82 - Decreased libido Lutenizing Hormone 3 Months R68.82 - Decreased libido Sex Hormone Binding Globulin 3 Months R68.82 - Decreased libido Prolactin 3 Months R68.82 - Decreased libido Estradiol Ultra Sensitive 3 Months E29.1 - Testicular hypofunction, R68.82 - Decreased libido Prostate Specific Antigen 3 Months R68.82 - Decreased libido Follicle Stimulating Hormone 3 Months R68.82 - Decreased libido Medications: Refilled tadalafil [id number] [facility] [id number] Member [id number] 20 mg PO .PRN 90 days 30 tabs 1RF sexual activity N52.01 - Erectile dysfunction due to arterial insufficiency, N52.9 - Male erectile dysfunction, unspecified tadalafil (Cialis) [id number] [facility] [id number] Member [id number] 5 mg PO DAILY 90 days 90 tabs 3RF N52.9 - Male erectile dysfunction, unspecified Patient Instructions: The patient had an opportunity to ask questions regarding the treatment plan. All questions were answered. Physical exam, labs, and imaging were discussed and reviewed in detail. As well as risks, benefits, and discussion of treatment choices. No major barriers to understanding were identified. The patient expressed understanding and agreement with the above treatment plan. The patient was made aware they should contact our office by phone for worsening of their current condition, the appearance of new symptoms, or with any questions or concerns. Compliance is encouraged with any medications and follow up testing that is ordered. It is a privilege to be allowed the opportunity to participate in? your urological care.? Again, if you have any questions or concerns If you have any questions or concerns please do not hesitate to contact me. The office is [phone]. This note is constructed using voice recognition software. While every effort has been made to ensure accuracy media production support manager errors may have been included. Yours sincerely, LALO Fraire Coding Level of Care Code Est Pt Level 4 (00866) Diagnoses Erectile dysfunction N52.9 Low libido R68.82 Time Spent (min) 30
== END 2024-03-01 10:03 | disposition home or self-care (01) ==
PROVIDERS: PCP Internal Medicine; Visit Provider Nurse Practitioner Family
DX: N52.9 Male erectile dysfunction, unspecified (principal); R68.82 Decreased libido; Z13.9 Encounter for screening, unspecified
CPT/HCPCS: 99214

== ENCOUNTER → 2024-03-01 09:14 | Outpatient (BNVA) | payer OTHER, SELFPAY | PROVIDERS: PCP Internal Medicine; Visit Provider Nurse Practitioner Family | DX: N52.9 Male erectile dysfunction, unspecified (principal); R68.82 Decreased libido | CPT/HCPCS: 81003 ==

== ENCOUNTER 2024-10-05 10:54 | Outpatient (AMB) | payer OTHER, SELFPAY ==
[2024-10-05 11:03] VITALS: BP 158/90; BMI 35.7
--- NOTE | 2024-10-05 11:03 | MHC.PC.OV ---
Vital Signs 10/05/24 11:03 Height 5 ft 9 in Weight 242 lb BMI 35.7 BP 158/90 H Blood Pressure Location Lt brachial Position Sitting Intake Visit Reasons: sleep study request Intake Note: Patient here requesting sleep study Beef Tagger Required: No Accompanied by: Self / Same As Patient Allergies Penicillins Allergy (Intermediate, Verified 10/05/24 11:25) Hives Medication List - Last Reviewed 10/05/24 by REGINE Aguero amlodipine 10 mg PO DAILY 90 days aspirin 81 mg PO Q2D chlorthalidone 25 mg PO DAILY 90 days tadalafil 20 mg PO .PRN 90 days tadalafil (Cialis) 5 mg PO DAILY 90 days valsartan 320 mg PO DAILY Tobacco use date assessed: 10/05/24 Dental Screening Dental Screen Date: 10/05/24 Did you have a dental visit in the last 12 months?: No Did you have a dental problem in the last 6 months where you did not have access to dental care?: No Was dental information given to patient?: Patient has dentist HPI HPI Comments History of Present Illness Details The patient is a 53-year-old male presenting with elevated blood pressure and symptoms suggestive of obstructive sleep apnea. He reported a blood pressure reading of 158/90 today and stated he had taken his hypertension medications approximately 10 minutes before the appointment. His hypertension is managed with amlodipine 10 mg, chlorthalidone 25 mg, valsartan 320 mg, in addition to aspirin 81 mg for coronary artery disease prevention. The patient is also noted to have an allergy to penicillin. For erectile dysfunction, he is using tadalafil (Cialis) 5 mg. He reported symptoms of loud snoring during the night and episodes where he stops breathing, as noted by his spouse. These symptoms have been attributed to his obesity, with a BMI of 35.7 indicating Class 2 obesity. Efforts are being made to address his weight issues. No previous mentions were made of any studies for sleep apnea, but the [place] Sleepiness Scale was briefly discussed to assess the need for a sleep study. 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 For few minutes in traffic with [place] score Scale of 21. [facility] Medical History Mixed hyperlipidemia Leucopenia Tubular adenoma COVID-19 vaccine series completed History of COVID-19 Snoring Polyuria Polyarthralgia Obesity (BMI 30.0-34.9) Essential hypertension Surgical History (Reviewed 10/05/24 @ 11: by Tegan Montes MD) No pertinent past surgical history Family History (Reviewed 10/05/24 @ : by Tegan Montes MD) Mother No problems noted. Father Parkinson disease Alzheimer disease Diabetes Social History (Reviewed 10/05/24 @ : by Tegan Montes MD) Housing: House Alcohol intake: current Alcohol intake frequency: a few times a month Alcohol type: beer and hard liquor Patient Tobacco Use Status: Former Tobacco user Tobacco use type: Cigarette e-Cigarette/Vaping Use: Never Used Second Hand Smoke Exposure: No service: No Current occupational status: employed Current occupational exposures/hazards: No Cognitive needs: No Hearing needs: No Vision needs: No Questionnaire PHQ-9 Over the last 2 weeks, how often have you been bothered by any of the following problems? 1. Little interest or pleasure in doing things: not at all 2. Feeling down, depressed, or hopeless: not at all 3. Trouble falling or staying asleep, or sleeping too much: more than half the days 4. Feeling tired or having little energy: not at all 5. Poor appetite or overeating: not at all 6. Feeling bad about yourself - or that you are a failure or have let yourself or your family down: not at all 7. Trouble concentrating on things, such as reading the newspaper or watching television: not at all 8. Moving or speaking so slowly that other people could have noticed. Or the opposite - being so fidgety or restless that you have been moving around a lot more than usual: not at all 9. Thoughts that you would be better off or of hurting yourself in some way: not at all Total score: 2 Depression Screening Interpretation: Negative Depression Screening Done: Yes 65942 - PHQ-9 Billing: Yes Source: Developed by Drs. Fritz Lai, NonaDick Amaya and colleagues, with an educational rafael from [employer]. Thrive Questionnaire Date Thrive assessed: 10/05/24 I am a: Patient What is your living situation today?: I have a steady place to live Within the past 12 months, did the food you bought not last and you didn't have the money to get more?: Never true Within the past 12 months, did you worry whether your food would run out before you got money to buy more?: Never true Do you have trouble paying for medicines?: No Do you have trouble getting transportation to medical appointments?: No Do you have trouble paying your heating and electricity bill?: No Do you have trouble taking care of your child, family member or friend?: No Do you have trouble with day-to-day activities such as bathing, preparing meals, shopping, managing finances, etc.?: No Are you currently unemployed and looking for a job?: No Are you interested in more education?: No Please select the resources that you would like help with: None Currently or been in a relationship where the following occur: No concerns reported THRIVE Score: 0 AUDIT C Alcohol Use Questionnaire (AUDIT-C) 1. How often do you have a drink containing alcohol?: 2-4 times a month 2. How many drinks containing alcohol do you have on a typical day when you are drinking?: 1 or 2 3. How often do you have six or more drinks on one occasion?: Never Total Score: 2 Score Reviewed/Action Taken: No MELBA-7 AMB Questionnaire MELBA-7 Date MELBA - 7 assessed: 10/05/24 Feeling nervous, anxious, or on edge: 0 = Not at all Not being able to stop or control worryin = Not at all Worrying too much about different things: 0 = Not at all Trouble relaxin = Not at all Being so restless that it is hard to sit still: 0 = Not at all Becoming easily annoyed or irritable: 0 = Not at all Feeling afraid as if something awful might happen: 0 = Not at all Total MELBA-7 score (0-4 normal; 5-9 mild; 10-14 moderate; 15-21 severe): 0 Source: Developed by Nona Christiansen Kurt Kroenke and colleagues, with an educational rafael from [employer]. MELBA-7 Assessment Billing MELBA-7 Assessment Tool: MELBA-7 Assessment 01913 Review of Systems Const Details: - Respiratory: Reports loud snoring and episodes of apnea during sleep. 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 Physical exam (Primary Care) Vital Signs: Last Vital Signs BP 158/90 H 10/05/24 11:03 BMI result Body Mass Index 35.7 BMI Assessment/Plan discussion: High BMI High, discussed plan: lifestyle, weight reduction, dietary and physical activity Tobacco/Smoking Status: Tobacco use Status Tobacco use date assessed 07/22/23 10/05/24 11:10 Patient Tobacco Use Status Former Tobacco user 10/05/24 11:10 Tobacco use type Cigarette 10/05/24 11:10 e-Cigarette/Vaping Use Never Used 10/05/24 11:10 PHQ-9: PHQ-9 Score PHQ-9: Total score 2 10/05/24 11:19 Depression Screening Interpretation: Negative Thrive Assessment: Date of Thrive Assessment Date Thrive assessed 10/05/24 10/05/24 11:19 Currently or been in a relationship where the following occur: No concerns reported Const Other: General: No confusion Orientation/Consciousness: Patient oriented x3 and No confusion Neck: Normal visual inspection and Yes supple, short neck noted Respiratory: Normal respiratory effort, clear to auscultation bilaterally, reports loud snoring and possible sleep apnea Cardiovascular: No jugular venous distension, regular rate, regular rhythm, S1 normal heart sound present and S2 normal heart sound present, heart sounds normal upon examination Neurology: Patient oriented x3, no focal motor deficits and No confusion Extremities: Full ROM Office Procedures Flu Questionnaire Does the patient have a severe egg allergy?: No Immunizations Fluarix Triv [id number] (PF) 45 mcg (15 mcg x 3)/0.5 mL IM syringe Performing Provider: Tegan Montes MD [facility] Documented (not given) by: REGINE Aguero on 10/05/24 11:13 Reason Not Given: Patient Refused Coding Level of Care Code Est Pt Level 4 (19192) Complex EM visit Add On G2211 Diagnoses Daytime somnolence R40.0 Erectile dysfunction N52.9 Essential hypertension I10 Obesity (BMI 30.0-34.9) E66.9 Additional Codes PHQ-9 - 54884 - PHQ-9 Billing: Yes ([id number]) MELBA-7 Assessment Billing - MELBA-7 Assessment Tool: MELBA-7 Assessment 82703 ([id number]) Time Spent (min) 24 Assessment & Plan Assessment & Plan (1) Daytime somnolence: Code(s): R40.0 - Somnolence Category: Medical (2) Erectile dysfunction: Code(s): N52.9 - Male erectile dysfunction, unspecified Category: Medical (3) Essential hypertension: Code(s): I10 - Essential (primary) hypertension Category: Medical (4) Obesity (BMI 30.0-34.9): Code(s): E66.9 - Obesity, unspecified Category: Medical Plan - Essential Hypertension: Continue current antihypertensive medications. Patient to monitor blood pressure at home three times a week and schedule a telehealth follow-up with nurse navigator in three weeks to assess. - Obstructive Sleep Apnea suspected): Discussed the need for a sleep study and use of an [place] Sleepiness Scale for further evaluation. Home sleep study to be arranged. - Obesity, Class 2: Encouragement given for weight management. Referral to spooling operator Rahat Grajeda was made for consideration of weight loss medication that is cardioprotective. - Erectile Dysfunction: Continue current Cialis regimen. Monitored by the urologist as per current plan. Patient was informed and verbally consented to the use of an ambient scribe for clinic note documentation during this visit. I discussed with the patient the importance of managing hypertension and explained the need for regular monitoring of blood pressure at home. For suspected obstructive sleep apnea, I emphasized the need for a sleep study to confirm the diagnosis, which could begin with a home sleep study. Risks about weight loss medications and their potential side effects such as pancreatitis, nausea, vomiting, and diarrhea were reviewed. I highlighted that while these medications showed thyroid nodular changes in animal studies, no direct link with cancer was found in humans. The patient agreed to be referred to spooling operator Rahat Grajeda for further management. I advised continued lifestyle modifications and weight loss strategies. Orders: Orders Influenza [id number] Immunization Today Z23 - Encounter for immunization Lipid Panel Today E78.5 - Hyperlipidemia, unspecified Complete Blood Count Auto Diff Today D72.819 - Decreased white blood cell count, unspecified Comprehensive [place]. Panel Fast Today I10 - Essential (primary) hypertension RT home sleep study Today R40.0 - Somnolence ECG 12 lead EKG Today R07.89 - Other chest pain Referrals Endocrinology Referral E66.9 - Obesity, unspecified
== END 2024-10-05 11:39 | disposition home or self-care (01) ==
PROVIDERS: PCP Internal Medicine; Visit Provider Internal Medicine
DX: R40.0 Somnolence (principal); N52.9 Male erectile dysfunction, unspecified; E66.9 Obesity, unspecified; Z68.35 Body mass index [BMI] 35.0-35.9, adult; I10 Essential (primary) hypertension; Z23 Encounter for immunization

== ENCOUNTER → 2024-10-05 10:54 | Outpatient (BNVA) | payer OTHER, SELFPAY | PROVIDERS: PCP Internal Medicine; Visit Provider Internal Medicine | DX: R40.0 Somnolence (principal); N52.9 Male erectile dysfunction, unspecified; I10 Essential (primary) hypertension; E66.9 Obesity, unspecified; Z79.899 Other long term (current) drug therapy | CPT/HCPCS: 96127 ==

== ENCOUNTER → 2024-11-23 07:57 | Outpatient (REF) | payer OTHER, SELFPAY ==
[2024-11-23 08:17] LABS: MANUAL DIFF FLAG NO
[2024-11-23 08:33] LABS: Basophils Percent Auto 0.6 % (0-2); Eosinophils Absolute Auto 0.1 X10*3/uL (0.0-0.4); Eosinophils Percent Auto 1.5 % (0-4); Hematocrit 45.3 % (42.0-52.0); Hemoglobin 14.9 g/dl (14.0-18.0); Lymphocytes Absolute Auto 2.2 X10*3/uL (1.2-4.9); Lymphocytes Percent Auto 44.8 % (20-40); Mean Corpuscular HGB Conc 32.9 g/dl (31.0-36.0); Mean Corpuscular Hemoglobin 28.3 pg (27.0-33.0); Mean Corpuscular Volume 86.1 fL (80.0-98.0); Mean Platelet Volume 10.1 fL (9.4-12.4); Monocytes Absolute Auto 0.4 X10*3/uL (0.1-1.2); Monocytes Percent Auto 7.9 % (2-11); Neutrophils Absolute Auto 2.2 x10*3/uL (2.0-8.3); Neutrophils Percent Auto 45.2 % (45-73); Platelet Count 265 X10*3/uL (160-400); Red Blood Count 5.26 X10*6/uL (4.60-5.80); Red Cell Distribution Width 13.1 % (11.0-16.0); White Blood Count 4.8 X10*3/uL (4.8-10.8)
[2024-11-23 09:10] LABS: Alanine Aminotransferase 25 U/L (0-40); Albumin Level 4.4 g/dL (3.5-5.0); Anion Gap 10 (12-20); Aspartate Amino Transferase 33 U/L (5-37); Bilirubin Total 1.1 mg/dL (0.0-1.0); Blood Urea Nitrogen 16 mg/dL (9-16); Calcium 9.3 mg/dL (8.4-10.2); Carbon Dioxide 25 mmol/L (22-29); Chloride 105 mmol/L (96-108); Cholesterol 197 mg/dL (<200); Estimated Glomerular Filt Rate > 60; Glucose Fasting 111 mg/dL (60-99); HDL Cholesterol 40 mg/dL (>40); LDL Cholesterol Calculated 134 mg/dL (<100); Potassium 3.2 mmol/L (3.3-5.1); Sodium 137 mmol/L (135-145); Total Protein 7.7 g/dL (6.5-8.0); Triglycerides 118 mg/dL (<150)
[2024-11-23 09:37] LABS: Prostate Specific Antigen 0.93 ng/mL (<0.05-4.0)
[2024-11-23 11:04] LABS: Alkaline Phosphatase 46 U/L (39-117)
[2024-11-24 20:59] LABS: Sex Hormone Binding Globulin 24 nmol/L (10-50)
[2024-11-24 21:59] LABS: Lutenizing Hormone 5.8 mIU/mL (1.5-9.3); Prolactin 7.8 ng/mL (2.0-18.0)
[2024-11-28 18:43] LABS: Testosterone, Free 64.4 pg/mL (35.0-155.0); Testosterone, Total 354 ng/dL (250-1100)
[2024-11-30 23:03] LABS: Estradiol Ultra Sensitive 36 pg/mL (< OR = 29)
== END ==
LOC: HO.SL 07:57
PROVIDERS: Nurse Practitioner Family; PCP Internal Medicine; Visit Provider Internal Medicine
DX: D72.819 Decreased white blood cell count, unspecified (principal); R68.82 Decreased libido; R40.0 Somnolence; G47.33 Obstructive sleep apnea (adult) (pediatric); E29.1 Testicular hypofunction; I10 Essential (primary) hypertension; Z12.5 Encounter for screening for malignant neoplasm of prostate
CPT/HCPCS: 36415; 80053; 80061; 82670; 83001; 83002; 84146; 84153; 84270; 84402; 84403; 85025; 95806

== ENCOUNTER → 2024-11-23 08:21 | Outpatient (BNV) | payer OTHER, SELFPAY | PROVIDERS: PCP Internal Medicine; Visit Provider Internal Medicine | DX: G47.33 Obstructive sleep apnea (adult) (pediatric) (principal) | CPT/HCPCS: 95806 ==

== ENCOUNTER 2025-02-13 16:50 | Outpatient (AMB) | payer OTHER, SELFPAY ==
--- NOTE | 2025-02-13 16:54 | A.OFFPC_ITS ---
Vital Signs 02/13/25 16:57 Height 5 ft 9 in Weight 231 lb BMI 34.1 BP 148/90 H Blood Pressure Location Lt brachial Position Sitting Intake Visit Reasons: Annual exam Intake Note: Patient here for an annual physical exam [employer] Required: No Accompanied by: Self / Same As Patient Allergies Penicillins Allergy (Intermediate, Verified 02/13/25 17:02) Hives Medication List - Last Reconciled 02/13/25 by Tegan Montes MD amlodipine 10 mg PO DAILY 90 days aspirin 81 mg PO Q2D chlorthalidone 50 mg PO DAILY 90 days CPAP (CPAP Machine/Device) autoPAP 5-20 cmH20 tadalafil 20 mg PO .PRN 90 days tadalafil (Cialis) 5 mg PO DAILY 90 days valsartan 320 mg PO DAILY Tobacco use date assessed: 02/13/25 Dental Screening Dental Screen Date: 02/13/25 Did you have a dental visit in the last 12 months?: Yes Did you have a dental problem in the last 6 months where you did not have access to dental care?: No Was dental information given to patient?: Patient has dentist HPI HPI Comments History of Present Illness Details The patient is a 54-year-old male presenting for a routine physical examination, which he last completed in June 2023. He expresses some confusion about the frequency of these visits, having believed he had already done this for the year, but acknowledges the importance of regular check-ups. Colonoscopy done 2021 showing tubular adenoma next colonoscopy should be 2026. Complains of blurry vision and would like ophthalmology. Also complains of diffuse joint pain and I will refer him to Rheumatology. He has a history of essential hypertension, managed with amlodipine, valsartan, and chlorthalidone. His blood pressure is reportedly slightly elevated, at 148/90 mmHg, despite adherence to his medication regimen. The patient also has obstructive sleep apnea managed with a CPAP machine. In addition, he is diagnosed with prediabetes, as noted with a fasting glucose level of 111 mg/dL measured in October of the current year. A concern for hypogonadism or hormonal imbalance is noted with an elevated estradiol level previously assessed by a urologist, yet no conclusive actions have been taken due to a belief it might self-resolve. The patient has a history of tubular adenoma removed in 2021 with plans for surveillant colonoscopy in 2026. His family medical history is significant, noting his father with Alzheimer's, diabetes, and Parkinson's Disease. His mother, still alive, reportedly suffers from hypertension and is likely developing dementia. He is overweight, previously weighing 242 pounds in September, but has since reduced this to 231 pounds with a goal to reach 190 pounds, facilitated through diet and increased physical activity. The patient's current weight fluctuates, and he expresses a persistent effort to reach his goal despite recent occupational constraints hindering consistency. The patient also reports subjective difficulties with his eyesight, specifically with presbyopia-like symptoms impeding the reading of small print, yet attributing it to aging and noting a desire to see an solid waste analyst. [facility] Medical History (Updated 02/13/25 @ 17:19 by Tegan Montes MD) Mixed hyperlipidemia Leucopenia Tubular adenoma COVID-19 vaccine series completed History of COVID-19 Snoring Polyuria Polyarthralgia Obesity (BMI 30.0-34.9) Essential hypertension Surgical History No pertinent past surgical history Family History Mother No problems noted. Father Parkinson disease Alzheimer disease Diabetes Social History Housing: House Alcohol intake: current Alcohol intake frequency: a few times a month Alcohol type: beer and hard liquor Patient Tobacco Use Status: Former Tobacco user Tobacco use type: Cigarette e-Cigarette/Vaping Use: Never Used Second Hand Smoke Exposure: No service: No Current occupational status: employed Current occupational exposures/hazards: No Cognitive needs: No Hearing needs: No Vision needs: No Questionnaire PHQ-9 Over the last 2 weeks, how often have you been bothered by any of the following problems? 1. Little interest or pleasure in doing things: not at all 2. Feeling down, depressed, or hopeless: not at all 3. Trouble falling or staying asleep, or sleeping too much: not at all 4. Feeling tired or having little energy: not at all 5. Poor appetite or overeating: not at all 6. Feeling bad about yourself - or that you are a failure or have let yourself or your family down: not at all 7. Trouble concentrating on things, such as reading the newspaper or watching television: not at all 8. Moving or speaking so slowly that other people could have noticed. Or the opposite - being so fidgety or restless that you have been moving around a lot more than usual: not at all 9. Thoughts that you would be better off or of hurting yourself in some way: not at all Total score: 0 Depression Screening Interpretation: Negative Depression Screening Done: Yes 57137 - PHQ-9 Billing: Yes Source: Developed by Drs. Fritz Lai, Nona Yang, Dick Wheatley and colleagues, with an educational rafael from [employer]. Thrive Questionnaire Date Thrive assessed: 02/13/25 I am a: Patient What is your living situation today?: I have a steady place to live Within the past 12 months, did the food you bought not last and you didn't have the money to get more?: I choose not to answer this question Within the past 12 months, did you worry whether your food would run out before you got money to buy more?: I choose not to answer this question Do you have trouble paying for medicines?: I choose not to answer this question Do you have trouble getting transportation to medical appointments?: I choose not to answer this question Do you have trouble paying your heating and electricity bill?: I choose not to answer this question Do you have trouble taking care of your child, family member or friend?: I choose not to answer this question Do you have trouble with day-to-day activities such as bathing, preparing meals, shopping, managing finances, etc.?: No Are you currently unemployed and looking for a job?: No Are you interested in more education?: No Please select the resources that you would like help with: None Currently or been in a relationship where the following occur: I choose not to answer THRIVE Score: 0 AUDIT C Alcohol Use Questionnaire (AUDIT-C) 1. How often do you have a drink containing alcohol?: 2-4 times a month 2. How many drinks containing alcohol do you have on a typical day when you are drinking?: 1 or 2 3. How often do you have six or more drinks on one occasion?: Less than monthly Total Score: 3 EMLBA-7 AMB Questionnaire MELBA-7 Date MELBA - 7 assessed: 02/13/25 Feeling nervous, anxious, or on edge: 0 = Not at all Not being able to stop or control worryin = Not at all Worrying too much about different things: 0 = Not at all Trouble relaxin = Not at all Being so restless that it is hard to sit still: 0 = Not at all Becoming easily annoyed or irritable: 0 = Not at all Feeling afraid as if something awful might happen: 0 = Not at all Total MELBA-7 score (0-4 normal; 5-9 mild; 10-14 moderate; 15-21 severe): 0 Source: Developed by Drs. Fritz Lai, Nona Yang, Dick Wheatley and colleagues, with an educational rafael from [employer]. MLEBA-7 Assessment Billing MELBA-7 Assessment Tool: MELBA-7 Assessment 77233 Review of Systems Const All systems reviewed & are unremarkable except as noted in HPI and below Card Denies chest pain at rest, Denies chest pain with activity, Denies edema, Denies irregular heart rhythm, Denies claudication, Denies dyspnea, Denies dyspnea on exertion, Denies orthopnea, Denies paroxysmal nocturnal dyspnea and Denies slow heart rate Resp Denies cough, Denies dyspnea and Denies dyspnea on exertion GI Denies abdominal pain, Denies change in bowel habits, Denies excessive flatus, Denies nausea and Denies vomiting Denies urinary hesitancy, Denies urinary incontinence and Denies urinary urgency Musc Denies atrophy, Denies deformity and Denies limited range of motion Skin/Breast Denies bleeding lesions, Denies changing lesions and Denies rash Physical exam (Primary Care) Vital Signs: Last Vital Signs BP 148/90 H 02/13/25 16:57 BMI result Body Mass Index 34.1 BMI Assessment/Plan discussion: High BMI High, discussed plan: lifestyle, weight reduction, dietary and physical activity Tobacco/Smoking Status: Tobacco use Status Tobacco use date assessed 02/13/25 02/13/25 17:03 Patient Tobacco Use Status Former Tobacco user 02/13/25 16:58 Tobacco use type Cigarette 02/13/25 16:58 e-Cigarette/Vaping Use Never Used 02/13/25 16:58 PHQ-9: PHQ-9 Score PHQ-9: Total score 0 02/13/25 17:05 Depression Screening Interpretation: Negative Thrive Assessment: Date of Thrive Assessment Date Thrive assessed 02/13/25 02/13/25 16:58 Currently or been in a relationship where the following occur: I choose not to answer HENMT Head: Yes normal to inspection, Yes normocephalic and Yes atraumatic Ears: external ears normal Eyes General: appearance normal, both eyes and all related structures Eyelids: Yes eyelids normal Conjunctivae: conjunctivae normal Neck Neck: Yes normal visual inspection and Yes supple Resp Effort & Inspection: normal respiratory effort Auscultation: clear to auscultation bilaterally Cardio Jugular venous distension: no JVD Rate: regular rate Rhythm: regular rhythm Heart sounds: S1 normal heart sound present and S2 normal heart sound present GI Inspection: Yes normal to inspection Palpation (GI): Soft to palpation and nontender Auscultation: normal bowel sounds Skin General skin exam: no rashes or lesions noted Neuro General: no focal motor deficits Extrem General: Yes full ROM Psych Appearance: grossly normal Coding Level of Care Code Est Pt Level 3 (63715) Est Pt Prev Care 40-64y(56733) Diagnoses Physical exam Z00.00 Blurry vision H53.8 Polyarthralgia M25.50 Additional Codes MELBA-7 Assessment Billing - MELBA-7 Assessment Tool: MELBA-7 Assessment 26910 ([id number]) PHQ-9 - 41571 - PHQ-9 Billing: Yes ([id number]) Time Spent (min) 34 Assessment & Plan Assessment & Plan (1) Physical exam: Code(s): Z00.00 - Encounter for general adult medical examination without abnormal find ings Category: Medical (2) Blurry vision: Code(s): H53.8 - Other visual disturbances Category: Medical (3) Polyarthralgia: Code(s): M25.50 - Pain in unspecified joint Category: Medical Plan I will monitor the patient's hypertension, ensuring adherence to amlodipine and valsartan, with lifestyle and dietary interventions targeting weight loss and gl ycemic control for prediabetes. Labs will be repeated in four months to evaluate cholesterol and glucose management. The necessity for subsequent blood pressure monitoring and ongoing CPAP efficacy remains, considering potential developments in his obstructive sleep apnea. For the elevated estradiol levels, ongoing urological observation is acceptable without immediate hormonal intervention. Meanwhile, attention to vision issues should prompt an optometric assessment at the patient's convenience. Patient was informed and verbally consented to the use of an ambient scribe for clinic note documentation during this visit. We discussed the current hypertensive readings, attributing them to medication adherence while reinforcing the need for dietary modifications. I emphasized weight loss and activity level improvement for diabetes risk mitigation, agreeing with a four-month timeline for revisiting labs. We recognized elevated estradiol levels yet opted for further assessments before potential medical therapy. I addressed dermatological concerns by suggesting optional dermatology consultation for wart removal if the patient desired, though informed of possible non-coverage. The patient comprehends declined tetanus recommendation. Lastly, a plan for tailoring physical activity for achievable and sustainable target weight remains. Orders: Orders Comprehensive [place]. Panel Fast 4 Months R73.02 - Impaired glucose tolerance (oral) Lipid Panel 4 Months E78.5 - Hyperlipidemia, unspecified, R73.02 - Impaired glucose tolerance (oral) Referrals Rheumatology Referral M25.50 - Pain in unspecified joint Ophthalmology Referral H53.8 - Other visual disturbances Patient Instructions: - Continue taking blood pressure medications as prescribed. - Use CPAP machine regularly every night. - Focus on dietary modifications and physical exercise to promote weight loss. - Recheck labs in four months to evaluate glucose and cholesterol. - Monitor any vision changes and consider visiting an assurance specialist if necessary. - Follow-up with urology regarding elevated estradiol as advised. - Consider optional freelance recruiter consultation for warts if desired.
[2025-02-13 16:57] VITALS: BP 148/90; BMI 34.1
== END 2025-02-13 17:20 | disposition home or self-care (01) ==
LOC: HO.HMCH 16:52
PROVIDERS: PCP Internal Medicine; Visit Provider Internal Medicine
DX: Z00.00 Encounter for general adult medical examination without abnormal findings (principal); H53.8 Other visual disturbances; M25.50 Pain in unspecified joint

== ENCOUNTER → 2025-02-13 16:50 | Outpatient (BNVA) | payer OTHER, SELFPAY | PROVIDERS: PCP Internal Medicine; Visit Provider Internal Medicine | DX: Z00.00 Encounter for general adult medical examination without abnormal findings (principal); H53.8 Other visual disturbances; M25.50 Pain in unspecified joint; I10 Essential (primary) hypertension; Z79.899 Other long term (current) drug therapy | CPT/HCPCS: 96127 ==